=== PATIENT | male | born 1995 ===

== ENCOUNTER 2018-09-27 13:50 | Emergency (ER) | payer BC ==
[2018-09-27 14:06] VITALS: BMI 28.8
[2018-09-27 14:08] VITALS: BP 129/78; PULSE 99; RESP 18; TEMP 99.5; O2SAT 99
[2018-09-27] MEDS ORDERED: Amoxicillin-Clav 875-125 mg Tab PO STA (15:07)
[2018-09-27] MEDS ORDERED: Amoxicillin-Clav 875-125 mg Tab PO ONE (15:24)
--- NOTE | 2018-09-27 15:36 | C.PDOC ---
History Of Present Illness 22 y/o male comes in to ED for a 2 day history of right ear pain. States that afterwards, he started developing clear yellow discharge from the right ear. Patient denies any trauma, hearing loss, dizziness, headache, or neck pain. Time Seen by Provider: 09/27/18 14:21 Chief Complaint (Nursing): ENT Problem History Per: Patient History/Exam Limitations: None Onset/Duration Of Symptoms: Days Current Symptoms Are (Timing): Still Present Past Medical History Reviewed: Historical Data, Nursing Documentation, Vital Signs Vital Signs: Last Vital Signs Temp 99.5 F 09/27/18 14:05 Pulse 99 H 09/27/18 14:05 Resp 18 09/27/18 14:05 BP 129/78 09/27/18 14:05 Pulse Ox 99 09/27/18 14:05 Family History: States: No Known Family Hx - Social History Hx Alcohol Use: No Hx Substance Use: No - Immunization History Hx Tetanus Toxoid Vaccination: No Hx Influenza Vaccination: No Hx Pneumococcal Vaccination: No Review Of Systems Except As Marked, All Systems Reviewed And Found Negative. Eyes: Positive for: Pain (Right), Other (Yellow discharge from right ear; no hearing loss) Musculoskeletal: Negative for: Neck Pain Neurological: Negative for: Headache, Dizziness Physical Exam - Physical Exam Appears: Non-toxic, No Acute Distress Skin: Warm, Dry Head: Atraumatic, Normacephalic Eye(s): bilateral: Normal Inspection Ear(s): Left: Normal, Right: Other (external edematous and draining yellow purulent material. No mastoid tenderness) Oral Mucosa: Moist Tongue: Normal Appearing Lips: Normal Appearing Throat: No Erythema, No Exudate Neck: Normal ROM, Supple Lymphatic: No Adenopathy Chest: Symmetrical Cardiovascular: Rhythm Regular, No Murmur Respiratory: Normal Breath Sounds, No Rales, No Rhonchi, No Wheezing Extremity: Bilateral: Atraumatic, Normal Color And Temperature, Normal ROM Neurological/Psych: Oriented x3, Normal Speech Gait: Steady ED Course And Treatment O2 Sat by Pulse Oximetry: 99 (RA) Pulse Ox Interpretation: Normal Medical Decision Making Medical Decision Making: Plan: --Augmentin Disposition - Disposition Referrals: Tod Solitario MD [Staff Provider] - Disposition: HOME/ ROUTINE Disposition Time: 15:37 Condition: STABLE Additional Instructions: Follow up with the medical doctor within 1-2 days. Return if worsened. Prescriptions: Amoxicillin/Clavulanate [Augmentin 875 MG-125 MG] 1 tab PO BID #14 tab Neomycin/Polymyxin/Hydrocortis [Cortisporin Otic Susp] 3 drop TOP TID #1 bottle Instructions: Outer Ear Infection (DC) Forms: [employer] (Iranian) - Clinical Impression Clinical Impression: Otitis externa - PA / INVESTMENT EXECUTIVE / Resident Statement MD/DO has reviewed & agrees with the documentation as recorded. - Scribe Statement The provider has reviewed the documentation as recorded by the Scriblalit Kwan All medical record entries made by the Armida were at my direction and personally dictated by me. I have reviewed the chart and agree that the record accurately reflects my personal performance of the history, physical exam, medical decision making, and the department course for this patient. I have also personally directed, reviewed, and agree with the discharge instructions and disposition.
== END 2018-09-27 15:49 | disposition home or self-care (01) ==
LOC: C.ER 13:50
DX: H60.91 Unspecified otitis externa, right ear (principal)